=== PATIENT | male | born 1945 ===

== ENCOUNTER 2018-01-02 11:40 | Outpatient (CLI) | payer BC ==
[2018-01-02 12:05] LABS: Bilirubin Negative (Negative); Blood, Urine Negative (Negative); Clarity Clear (Clear); Glucose, Urine (Dipstick) Negative (Negative); Leukocyte Negative (Negative); Nitrite Negative (Negative); Protein, Urine (Dipstick) Negative (Neg-Trace); Urobilinogen 0.2 mg/dL (0.2-1.0)
[2018-01-02 12:07] LABS: #Eosinphils 0.2 thou/uL (0.0-0.7); #Monocytes 0.5 thou/uL (0.11-0.59); #Neutrophils 3.4 thou/uL (1.40-6.50); %Basophils 0.7 % (0.0-1.0); %Eosinophils 2.7 % (0.0-10.0); %Lymphocytes 32.3 % (21.0-51.0); %Monocytes 8.6 % (0.0-10.0); %Neutrophils 55.7 % (42.0-75.0); Hemoglobin 15.7 g/dL (14.0-18.0); Mean Corpuscular Hemoglobin 29.4 pg (27.0-31.0); Mean Platelet Volume 5.8 fL (7.4-10.4); Platelet Count 260 thou/uL (130-400); RBC Distribution Width 11.2 % (11.5-14.5); Red Blood Cell (RBC) Count 5.33 mill/uL (4.70-6.10)
[2018-01-02 12:11] LABS: RBC/HPF 0-3 HPF (0-3); WBC/HPF None Seen HPF (0-3)
[2018-01-02 12:12] LABS: Bacteria/HPF None Seen HPF (None Seen); Squamous Epithelial None Seen HPF (0-3)
[2018-01-02 12:14] LABS: ALT (SGPT) 18 U/L (8-55); AST (SGOT) 21 U/L (5-34); Albumin 4.3 g/dL (3.4-4.8); Alkaline Phosphatase 70 U/L (40-150); Anion Gap 13 mmol/L (10-20); BUN (Urea Nitrogen) 17 mg/dL (8.4-25.7); Calc. Creatinine Clearance 0 mL/min (70-130); Calcium 9.3 mg/dL (7.8-10.44); Carbon Dioxide 28 mmol/L (23-31); Cardiac Risk 4.7 (Less than 4.5); Chloride 102 mmol/L (98-107); Cholesterol 164 mg/dl (< 200 Desired); Estimated GFR-MDRD 82; Globulin 3.1 g/dL (2.4-3.5); Glucose 103 mg/dL (83-110); HDL Cholesterol 35 mg/dL (>60 Neg Risk); LDL Cholesterol, Calculated 100 mg/dL; Potassium 4.2 mmol/L (3.5-5.1); Protein, Total 7.4 g/dL (5.8-8.1); Sodium 139 mmol/L (136-145); Triglycerides 146 mg/dL (Less than 150)
--- NOTE | 2018-01-02 12:27 | RAD ---
FOUR VIEWS OF THE LEFT KNEE: Comparison: None. History: Osteoarthrosis of the left knee with left knee pain. FINDINGS: Four views of the left knee shows moderate tricompartmental joint space narrowing and osteophyte form ation, greatest in the medial femorotibial compartment. No knee effusion is seen. There is a small os sific fragment in the suprapatellar bursa which likely represents a lucent or capsular osseous body. IMPRESSION: Moderate left knee osteoarthritis. POS: [facility]
[2018-01-02 12:41] LABS: PSA-Asymptomatic (SCREENING) 4.61 ng/mL (0-4.0); Thyroid Stimulating Hormone 1.2201 uIU/mL (0.35-4.94)
== END 2018-01-02 11:41 | disposition home or self-care (01) ==
LOC: SCSRAD 11:40
PROVIDERS: ATTEND Family Medicine
DX: Z00.00 Encounter for general adult medical examination without abnormal findings (principal); M17.12 Unilateral primary osteoarthritis, left knee
CPT/HCPCS: 36415; 80053; 80061; 81001; 84443; 85025; G0103

== ENCOUNTER 2019-08-01 15:56 | Outpatient (CLI) | payer BC ==
--- NOTE | 2019-08-01 16:15 | RAD ---
XR Chest Pa Lat STANDARD HISTORY: Chest congestion, cough COMPARISON: None FINDINGS: The heart size is normal. The lungs are well expanded without focal areas of consolidation, pneumothorax or pleural effusions. There are degenerative changes in the spine. Postop changes of bilateral rotator cuff surgery are see n. IMPRESSION: No radiographic evidence of acute cardiopulmonary process.
== END 2019-08-01 15:57 | disposition home or self-care (01) ==
LOC: SCSRAD 15:56
PROVIDERS: ATTEND Family Medicine
DX: J40 Bronchitis, not specified as acute or chronic (principal)
CPT/HCPCS: 71046

== ENCOUNTER 2019-11-07 09:53 | Outpatient (CLI) | payer BC ==
--- NOTE | 2019-11-07 12:33 | ULT ---
ULTRASOUND ABDOMEN: Date: 11/07/2019 HISTORY: Left upper quadrant pain. FINDINGS: The liver demonstrates increased echogenicity consistent with fatty infiltration. No focal mass or in trahepatic ductal dilatation is seen. The spleen is normal measuring 8.8 cm in length. No shadowing g allstones, gallbladder wall thickening, or pericholecystic fluid seen. There are two nonshadowing mob ile echogenic foci arising from the wall of the gallbladder measuring 5.0 and 4.0 mm, respectively, c onsistent with polyps. The common duct measures 4.0 mm in diameter. There is a 2.3 cm cyst in the left kidney. The right kidney, visualized portions of the pancreas, aor ta, and IVC are unremarkable. No free fluid is seen. IMPRESSION: 1. Fatty liver. 2. Gallbladder polyps. 3. Left renal cyst. POS: [facility]
== END 2019-11-07 09:54 | disposition home or self-care (01) ==
LOC: BICULT 09:53
PROVIDERS: ATTEND Family Medicine
DX: R10.12 Left upper quadrant pain (principal); K76.0 Fatty (change of) liver, not elsewhere classified; N28.1 Cyst of kidney, acquired; K82.4 Cholesterolosis of gallbladder
CPT/HCPCS: 93975

== ENCOUNTER 2025-05-15 13:04 | Outpatient (CLI) | payer BC ==
[2025-05-15 13:42] LABS: Estimated GFR - POC 77.0
== END 2025-05-15 13:05 | disposition home or self-care (01) ==
LOC: SCSMRI 13:04
PROVIDERS: ATTEND Urology
DX: R97.20 Elevated prostate specific antigen [PSA] (principal)
CPT/HCPCS: 36415; 72197; 82565

== ENCOUNTER 2025-05-22 10:13 | Outpatient (CLI) | payer BC ==
[2025-05-22 11:52] LABS: #Basophils Less than 0.03 10x3/uL (0.0-0.2); #Eosinophils 0.15 10x3/uL (0.0-0.7); #Monocytes 0.55 10x3/uL (0.11-0.59); #Neutrophils 3.23 10x3/uL (1.40-6.50); %Basophils 0.2 % (0.0-1.0); %Eosinophils 2.5 % (0.0-10.0); %Lymphocytes 33.1 % (21.0-51.0); %Monocytes 9.3 % (0.0-10.0); %Neutrophils 54.6 % (42.0-75.0); Hematocrit 43.1 % (42.0-52.0); Hemoglobin 14.3 g/dL (14.0-18.0); Mean Corpuscular Hemoglobin 28.3 pg (27.0-31.0); Mean Corpuscular Volume 85.2 fL (78.0-98.0); Platelet Count 256 10x3/uL (130-400); Red Blood Cell (RBC) Count 5.06 mill/uL (4.70-6.10); White Blood Cell (WBC) Count 5.92 10x3/uL (4.8-10.8)
[2025-05-22 12:05] LABS: INR-International Normal Ratio 1.0; Prothrombin Time 13.1 sec (12.0-14.7)
[2025-05-22 12:23] LABS: ALT (SGPT) 13 U/L (Less than 45); AST (SGOT) 21 U/L (11-34); Albumin 4.0 g/dL (3.1-4.5); Alkaline Phosphatase 62 U/L (40-110); Anion Gap 13 mmol/L (10-20); BUN (Urea Nitrogen) 22 mg/dL (8.4-25.7); Bilirubin, Total 0.7 mg/dL (0.3-1.2); Calc. Creatinine Clearance 0 mL/min (70-130); Calcium 9.0 mg/dL (7.8-10.44); Carbon Dioxide 26 mmol/L (23-31); Chloride 103 mmol/L (98-107); Globulin 3.0 g/dL (2.4-3.5); Glucose 97 mg/dL (83-110); Potassium 4.2 mmol/L (3.5-5.1); Sodium 138 mmol/L (136-145)
== END 2025-05-22 10:14 | disposition home or self-care (01) ==
LOC: LABBT 10:13
PROVIDERS: ATTEND Orthopaedic Surgery
DX: Z01.818 Encounter for other preprocedural examination (principal); M17.12 Unilateral primary osteoarthritis, left knee
CPT/HCPCS: 80053; 85025; 85610; 87081; 93005; 93010

== ENCOUNTER 2025-05-26 06:06 | Inpatient (IN) | payer BC, MEDICARE ==
[2025-05-26] MEDS ORDERED: Vancomycin 1 GM/200 ML (FROZEN) BAG ONE (06:15)
[2025-05-26] MEDS ORDERED: Tranexamic Acid 1,000 MG/10 ML VIAL ONE (06:15)
[2025-05-26] MEDS ORDERED: Bupivacaine 0.25% HCL 30 ML VIAL ONE (06:27)
[2025-05-26] MEDS ORDERED: Ropivacaine 0.5% HCl/PF (150 MG/30 ML VIAL) ONE (06:40)
[2025-05-26] MEDS ORDERED: Lidocaine 1% (PF) 30 ML VIAL ONE (06:40)
[2025-05-26] MEDS ORDERED: CEFAZOLIN 2 GM VIAL ONE (06:51)
[2025-05-26] MEDS ORDERED: fentaNYL PF 100 MCG/2 ML SYRINGE ONE ×2 (06:53→08:04)
[2025-05-26] MEDS ORDERED: Ondansetron PF 4 MG/2 ML Vial ONE (06:53)
[2025-05-26] MEDS ORDERED: Lidocaine 1% PF 5 ML VIAL ONE (06:53)
[2025-05-26] MEDS ORDERED: Rocuronium Bromide 10 MG/ML (10ML VIAL) ONE (06:53)
[2025-05-26] MEDS ORDERED: HYDROcodone/Acetaminophen 10/325 mg Tablet PO PRN (07:15)
[2025-05-26] MEDS ORDERED: Ropivacaine 0.2% 550 ML 550 ML NERVE BLCK SCH (07:15)
[2025-05-26] MEDS ORDERED: Ondansetron PF 4 MG/2 ML Vial IVP PRN ×2 (07:15→09:01)
[2025-05-26] MEDS ORDERED: PHENYLEPHRINE-NS 100 MCG/ML 10 ML SYRINGE ONE (07:37)
[2025-05-26] MEDS: Ketorolac Tromethamine 30 MG (1 mL) VIAL IVP SCH (15:42)
[2025-05-26 18:49] VITALS: BMI 26.1
[2025-05-26] MEDS ORDERED: Glucagon 1 MG/ML KIT IM PRN (20:12)
[2025-05-26] MEDS ORDERED: Dextrose 50% Abboject 50 ML SYRINGE SLOW IVP PRN (20:12)
[2025-05-26] MEDS ORDERED: Albuterol 2.5 MG (3 mL) NEB NEB PRN (21:23)
[2025-05-26] MEDS: Senokot S 8.6-50 MG TAB PO SCH (21:32)
[2025-05-26] MEDS: Ferrous Gluconate 324 MG TAB PO SCH (21:32)
[2025-05-26] MEDS: HYDROcodone/Acetaminophen 10/325 mg Tablet PO PRN (21:33)
[2025-05-26] MEDS: metFORMIN 500 MG TAB PO SCH (21:33)
[2025-05-26] MEDS: Aspirin 81 mg Enteric Coated Tablet PO SCH (21:33)
[2025-05-27 05:27] LABS: Hematocrit 37.4 % (42.0-52.0); Hemoglobin 12.1 g/dL (14.0-18.0); Mean Corpuscular Hemoglobin 27.9 pg (27.0-31.0); Mean Corpuscular Volume 86.4 fL (78.0-98.0); Platelet Count 215 10x3/uL (130-400); Red Blood Cell (RBC) Count 4.33 mill/uL (4.70-6.10); White Blood Cell (WBC) Count 11.69 10x3/uL (4.8-10.8)
[2025-05-27] MEDS: Multivitamin W/ Minerals 1 TAB PO SCH (08:48)
[2025-05-27] MEDS: Acetaminophen 325 MG TAB PO PRN (08:49)
[2025-05-28 04:38] VITALS: BP 141/68; TEMP 99.3
[2025-05-28 06:38] LABS: Hematocrit 37.4 % (42.0-52.0); Hemoglobin 12.2 g/dL (14.0-18.0); Mean Corpuscular Hemoglobin 28.2 pg (27.0-31.0); Mean Corpuscular Volume 86.6 fL (78.0-98.0); Platelet Count 222 10x3/uL (130-400); Red Blood Cell (RBC) Count 4.32 mill/uL (4.70-6.10); White Blood Cell (WBC) Count 8.98 10x3/uL (4.8-10.8)
[2025-05-28] MEDS: diphenhydrAMINE 25 MG CAP PO PRN (13:22)
== END 2025-05-28 14:59 | disposition home or self-care (01) | DRG 470 ==
LOC: SDC 06:06 → SURG A 10:27 → SDC 12:37 → SURG A 12:37 → OBSVTOIN 05-27 10:54
PROVIDERS: ADMIT Orthopaedic Surgery; ATTEND Orthopaedic Surgery
PROC: 0SRD0JA Replacement of Left Knee Joint with Synthetic Substitute, Uncemented, Open Approach (ICD-10-PCS; principal; 2025-05-27)
DX: M17.12 Unilateral primary osteoarthritis, left knee (principal); N40.0 Benign prostatic hyperplasia without lower urinary tract symptoms; E11.9 Type 2 diabetes mellitus without complications; Z96.652 Presence of left artificial knee joint; R33.8 Other retention of urine; J45.909 Unspecified asthma, uncomplicated; Z98.890 Other specified postprocedural states; Z87.891 Personal history of nicotine dependence
CPT/HCPCS: 36415; 36416; 85027; A4306; C1713; C1776; C1889; J0169; J0665; J1100; J1885; J2003; J2250; J2405; J2795; J3010; J3373; J7030